=== PATIENT | male | born 1945 | race Caucasian/White ===

== ENCOUNTER → 2023-11-04 | Day surgery (SDC) | payer MEDICARE ==
[2023-10-31 10:30] VITALS: BMI 29.5
[~2023-11-04] MED LIST: LACTATED RINGERS 1,000 ML IV SCH; LIDOCAINE 1% INJ 10MG/ML (20 ML MDV) ONE; LIDOCAINE 2% INJ 20 MG/ML INTRATRACH ONE; PROPOFOL 10 MG/ML 20 ML VIAL IV ONE
[2023-11-04 12:16] VITALS: RESP 16; TEMP 98.1
--- NOTE | 2023-11-04 12:45 | P.PCN ---
Date of Procedure: 11/04/23 Preoperative Diagnosis: Dyspnea Postoperative Diagnosis: Tracheal bronchomalacia Respiratory secretions, rule out secondary bronchitis Procedure(s) Performed: Flexible bronchoscopy, bronchial lavage of the right middle lobe Anesthesia: MAC Surgeon: Carson Marcus Estimated Blood Loss (ml): 0 Pathology: other Condition: stable Disposition: same day Operative Findings: Flexible bronchoscopy and the endoscopy suite. A consent was obtained. A timeout was done. The procedure was done under conscious sedation. After achieving adequate sedation, the flexible bronchoscope was introduced through the right nostril without any major difficulties. The posterior pharynx, larynx , epiglottis, arytenoids and the vocal cords were inspected and the upper airway structures were all within normal limits. No evidence of any vocal cord dysfunction or paralysis. A total of 2 mL of 1% lidocaine was applied to the vocal cord and following that the bronchoscope was advanced into the upper trachea. The trachea was tortuous and there was moderate degree of respiratory secretions retained within the trachea. There was evidence of tracheal bronchomalacia throughout airway specially with exhalation and coughing. Therapeutic airway suctioning was done. Irrespective airways included the trachea, bilateral mainstem bronchi, right upper lobe bronchus, bronchus intermedius, right middle lobe bronchus, right lower lobe bronchus, and the various 10 segments on the right and examination of the left included left mainstem bronchus, left upper lobe bronchus and left lower lobe bronchus and the various 8 segments on the left. No endobronchial tumors. No lesions. No polyps. No foreign bodies. The bronchoscope was wedged into the right middle lobe and a total of 40 mL of fluid was infused and 10 mL was suctioned back without any major difficulties. Aspirate was cloudy, nonbloody. Therapeutic airway suctioning was completed and the bronchoscope was removed and the bronchial lavage was sent for microbial cultures and analysis. The patient was transferred to recovery in stable condition. No complications.
[2023-11-04 13:27] VITALS: BP 146/78; PULSE 97
== END ==
LOC: ORWHC2ENDO 11:11
PROVIDERS: ATTEND Internal Medicine Critical Care Medicine
DX: J98.09 Other diseases of bronchus, not elsewhere classified (principal); J44.9 Chronic obstructive pulmonary disease, unspecified; I10 Essential (primary) hypertension; F17.210 Nicotine dependence, cigarettes, uncomplicated; Z79.51 Long term (current) use of inhaled steroids; Z79.899 Other long term (current) drug therapy; Z98.890 Other specified postprocedural states
CPT/HCPCS: 87798 ×3; 87496; 87498; 87529; 87502; 87634; 87070; 87205; 87116; 87102; 87077; 87186; 87206; 87635; 31624; J2001 ×2; J2704

== ENCOUNTER → 2024-06-23 | Outpatient (CLI) | payer MEDICARE | END | disposition home or self-care (01) | LOC: LABPRL 06:10 | PROVIDERS: ATTEND Internal Medicine Geriatric Medicine | DX: A41.9 Sepsis, unspecified organism (principal); L02.212 Cutaneous abscess of back [any part, except buttock and flank] | CPT/HCPCS: 85652 ==

== ENCOUNTER → 2024-06-24 | Outpatient (CLI) | payer MEDICARE | LOC: LABPRL 12:00 | PROVIDERS: ATTEND Internal Medicine Geriatric Medicine | DX: A41.9 Sepsis, unspecified organism (principal) | CPT/HCPCS: 85652 ==

== ENCOUNTER → 2024-06-28 | Outpatient (CLI) | payer MEDICARE | END | disposition home or self-care (01) | LOC: LABPRL 06:00 | PROVIDERS: ATTEND Family Medicine | CPT/HCPCS: 82607; 82746; 85652 ==